=== PATIENT | male | born 1960 | race Caucasian/White ===

== ENCOUNTER 2024-04-24 21:25 | Inpatient (IN) | payer BC, OTHER ==
[~2024-04-24] VITALS: Ht 188 cm; Wt 96.0 kg
[2024-04-24 22:16] LABS: HEMATOCRIT 38.8 % (42.0-52.0); HEMOGLOBIN 12.1 g/dl (13.5-17.5); MEAN CORPUSCULAR HEMOGLOBIN 26.8 pg (27.0-33.0); MEAN CORPUSCULAR HGB CONC 31.2 g/dl (32.0-36.5); PLATELET COUNT, AUTOMATED 221 10^3/uL (150-450); RED BLOOD COUNT 4.51 10^6/uL (4.30-6.10); WHITE BLOOD COUNT 4.6 10^3/uL (4.0-10.0)
[2024-04-24] MEDS: ONDANSETRON 4MG 2ML VIAL IV ONE (22:18)
[2024-04-24 22:45] LABS: LIPASE 45 U/L (12-53)
[2024-04-24 22:47] LABS: ALBUMIN 2.3 G/DL (3.2-5.2); ALKALINE PHOSPHATASE 103 U/L (46-116); ALT/SGPT 30 U/L (7.0-40); AST/SGOT 42 U/L (<34); BILIRUBIN,DIRECT 0.3 MG/DL (<0.4); BILIRUBIN,TOTAL 0.7 MG/DL (0.3-1.2); BLOOD UREA NITROGEN 20 MG/DL (9-23); CALCIUM LEVEL 8.4 MG/DL (8.3-10.6); CARBON DIOXIDE LEVEL 29 MMOL/L (20-31); CHLORIDE LEVEL 99 MMOL/L (98-107); CREATININE FOR GFR 1.12 MG/DL (0.70-1.30); GLOMERULAR FILTRATION RATE > 60.0 (>49); GLUCOSE, FASTING 129 MG/DL (74-106); POTASSIUM SERUM 3.7 MMOL/L (3.5-5.1); SODIUM LEVEL 136 MMOL/L (136-145); TOTAL PROTEIN 6.4 G/DL (5.7-8.2)
[2024-04-24 23:04] LABS: CK-MB VALUE MASS < 1.0 NG/ML (<3.6)
[2024-04-24 23:06] LABS: CPK CREATINE PHOSPHOKINASE 111 U/L (46-171)
[2024-04-24 23:18] LABS: EOSINOPHILS 2 % (0-3); LYMPHOCYTES 4 % (16-44); MONOCYTES 11 % (0-5); NEUTROPHILS 73 % (28-66)
[2024-04-24 23:19] LABS: ANISOCYTOSIS 1+; HYPOCHROMASIA 1+; PLATELET ESTIMATE NORMAL (NORMAL)
[2024-04-24] MEDS: cefTRIAXone SOD 2 GM in D5W MINI-BAG PLUS 50 ML IV ONE (23:29)
[2024-04-24 23:41] LABS: CK-MB VALUE MASS < 1.0 NG/ML (<3.6); CPK CREATINE PHOSPHOKINASE 106 U/L (46-171); MB/CK RELATIVE INDEX 0.94 (< OR =4)
[2024-04-25] VITALS (8 sets, daily range): BP systolic 123–150; BP diastolic 63–75; TEMP 97.4–98.4; O2SAT 83–97
[2024-04-25] MEDS ORDERED: GLUCAGON INJ 1MG VIAL SC PRN (01:15)
[2024-04-25] MEDS ORDERED: DEXTROSE 50% 50ML SYRINGE IV PRN (01:15)
[2024-04-25] MEDS ORDERED: GLUCOSE 4 GM CHEW PO PRN (01:15)
[2024-04-25] MEDS ORDERED: ONDANSETRON 4MG 2ML VIAL IV PRN (02:00)
[2024-04-25] MEDS ORDERED: FERR1TAB8 PO (03:04)
[2024-04-25] MEDS ORDERED: MELA3TAB30 PO (03:04)
[2024-04-25] MEDS ORDERED: ASPI-655 PO (03:04)
[2024-04-25] MEDS ORDERED: ACET-907 PO (03:04)
[2024-04-25] MEDS ORDERED: PANT-23 PO (03:04)
[2024-04-25] MEDS ORDERED: JARD1TAB3 PO (03:04)
[2024-04-25] MEDS ORDERED: ASPE4PAD TOP (03:04)
[2024-04-25] MEDS ORDERED: SENN8.6T28 PO (03:04)
[2024-04-25] MEDS ORDERED: [UNRECOGNIZED DRUG - CODE] PO (03:04)
[2024-04-25] MEDS ORDERED: AMIO200T49 PO (03:04)
[2024-04-25] MEDS ORDERED: DICL100G10 TOP (03:04)
[2024-04-25] MEDS ORDERED: BOOSLIQ PO (03:04)
[2024-04-25] MEDS ORDERED: ROSU40TA81 PO (03:04)
[2024-04-25] MEDS ORDERED: JENT2.5T5 PO (03:04)
[2024-04-25] MEDS ORDERED: HOME MED LIST COMPLETE! XX SCH (03:05)
[2024-04-25 06:06] LABS: BASO % 0.6 % (0.0-1.0); EOS # 0.2 10^3/uL (0.0-0.5); EOS % 3.6 % (0.0-3.0); HEMATOCRIT 36.3 % (42.0-52.0); HEMOGLOBIN 11.3 g/dl (13.5-17.5); LYMPH # 0.5 10^3/uL (1.5-5.0); LYMPH % 10.1 % (24.0-44.0); MEAN CORPUSCULAR HEMOGLOBIN 27.4 pg (27.0-33.0); MEAN CORPUSCULAR HGB CONC 31.1 g/dl (32.0-36.5); MEAN CORPUSCULAR VOLUME 87.9 fl (80.0-96.0); MONO # 0.6 10^3/uL (0.0-0.8); MONO % 12.7 % (2.0-8.0); NEUTROPHILS # 3.4 10^3/uL (1.5-8.5); NEUTROPHILS % 72.4 % (36.0-66.0); PLATELET COUNT, AUTOMATED 238 10^3/uL (150-450); RED BLOOD COUNT 4.13 10^6/uL (4.30-6.10); WHITE BLOOD COUNT 4.7 10^3/uL (4.0-10.0)
[2024-04-25] MEDS: INSULIN LISPRO (NovoLOG) PER UNIT SC SCH ×2 (07:30→20:25)
[2024-04-25 08:16] LABS: ALBUMIN 2.2 G/DL (3.2-5.2); ALKALINE PHOSPHATASE 102 U/L (46-116); ALT/SGPT 35 U/L (7.0-40); AST/SGOT 43 U/L (<34); BILIRUBIN,TOTAL 0.5 MG/DL (0.3-1.2); BLOOD UREA NITROGEN 20 MG/DL (9-23); CALCIUM LEVEL 8.4 MG/DL (8.3-10.6); CARBON DIOXIDE LEVEL 30 MMOL/L (20-31); CHLORIDE LEVEL 98 MMOL/L (98-107); CREATININE FOR GFR 1.15 MG/DL (0.70-1.30); GLOMERULAR FILTRATION RATE > 60.0 (>49); GLUCOSE, FASTING 98 MG/DL (74-106); POTASSIUM SERUM 3.6 MMOL/L (3.5-5.1); SODIUM LEVEL 134 MMOL/L (136-145); TOTAL PROTEIN 6.2 G/DL (5.7-8.2)
[2024-04-25] MEDS: PANTOPRAZOLE 40MG TAB (PROTONIX) PO SCH (08:46)
[2024-04-25] MEDS: ASPIRIN 81MG CHEW TABLET PO SCH (08:46)
[2024-04-25] MEDS: HEPARIN SOD (PORCINE) 5000UNITS/ML 1ML VIAL/SYRINGE SC SCH (08:46)
[2024-04-25] MEDS: AMIODARONE 200 MG TAB (PACERONE) PO SCH (08:46)
[2024-04-25] MEDS: DOCUSATE SODIUM 100MG CAPSULE PO SCH (10:49)
[2024-04-25] MEDS: cefTRIAXone SOD 2 GM in D5W MINI-BAG PLUS 50 ML IV SCH (11:44)
[2024-04-25] MEDS: SENNA 8.6 MG TAB (SENOKOT) PO SCH (20:24)
[2024-04-25] MEDS: RAMELTEON 8 MG TAB (ROZEREM) PO SCH (20:24)
[2024-04-25] MEDS: ROSUVASTATIN 10 MG TAB (CRESTOR) PO SCH (20:25)
[2024-04-25] MEDS: LIDOCAINE 4% CREAM 5GM (LMX4) TOP SCH (20:27)
[2024-04-26 03:50] VITALS: BP 113/54; TEMP 97.8; O2SAT 97
[2024-04-26 05:43] LABS: HEMATOCRIT 34.2 % (42.0-52.0); HEMOGLOBIN 10.5 g/dl (13.5-17.5); MEAN CORPUSCULAR HEMOGLOBIN 26.6 pg (27.0-33.0); MEAN CORPUSCULAR HGB CONC 30.7 g/dl (32.0-36.5); MEAN CORPUSCULAR VOLUME 86.6 fl (80.0-96.0); PLATELET COUNT, AUTOMATED 228 10^3/uL (150-450); RED BLOOD COUNT 3.95 10^6/uL (4.30-6.10); WHITE BLOOD COUNT 5.8 10^3/uL (4.0-10.0)
[2024-04-26 06:11] LABS: ALKALINE PHOSPHATASE 102 U/L (46-116); ALT/SGPT 41 U/L (7.0-40); AST/SGOT 65 U/L (<34); BILIRUBIN,TOTAL 0.4 MG/DL (0.3-1.2); BLOOD UREA NITROGEN 16 MG/DL (9-23); CALCIUM LEVEL 8.1 MG/DL (8.3-10.6); CARBON DIOXIDE LEVEL 31 MMOL/L (20-31); CHLORIDE LEVEL 99 MMOL/L (98-107); CREATININE FOR GFR 0.88 MG/DL (0.70-1.30); GLOMERULAR FILTRATION RATE > 60.0 (>49); GLUCOSE, FASTING 143 MG/DL (74-106); POTASSIUM SERUM 2.8 MMOL/L (3.5-5.1); SODIUM LEVEL 135 MMOL/L (136-145); TOTAL PROTEIN 5.9 G/DL (5.7-8.2)
[2024-04-26] MEDS: DAPAGLIFLOZIN PROPANEDIOL 10MG TABLET (FARXIGA) PO SCH (09:15)
[2024-04-26] MEDS: POTASSIUM CHLORIDE 10MEQ SR TABLET PO ONE (09:15)
[2024-04-26] MEDS: cefTRIAXone SOD 1 GM in D5W MINI-BAG PLUS 50 ML IV SCH (09:58)
[2024-04-26] MEDS: POTASSIUM CHLORIDE 10MEQ SR TABLET PO SCH (09:58)
[2024-04-26 12:00] VITALS: BP 119/70; TEMP 97.2; O2SAT 97
[2024-04-26 19:55] VITALS: BP 104/54; TEMP 97.5; O2SAT 97
[2024-04-26] MEDS: CEFDINIR 300 MG CAP (OMNICEF) PO SCH (20:20)
[2024-04-27 03:55] VITALS: BP 102/52; TEMP 97.3; O2SAT 94
[2024-04-27 05:54] LABS: HEMATOCRIT 35.2 % (42.0-52.0); HEMOGLOBIN 10.7 g/dl (13.5-17.5); MEAN CORPUSCULAR HEMOGLOBIN 26.4 pg (27.0-33.0); MEAN CORPUSCULAR HGB CONC 30.4 g/dl (32.0-36.5); MEAN CORPUSCULAR VOLUME 86.7 fl (80.0-96.0); PLATELET COUNT, AUTOMATED 216 10^3/uL (150-450); RED BLOOD COUNT 4.06 10^6/uL (4.30-6.10); WHITE BLOOD COUNT 4.9 10^3/uL (4.0-10.0)
[2024-04-27 06:30] LABS: ALBUMIN 1.9 G/DL (3.2-5.2); ALKALINE PHOSPHATASE 104 U/L (46-116); ALT/SGPT 49 U/L (7.0-40); AST/SGOT 74 U/L (<34); BILIRUBIN,TOTAL 0.3 MG/DL (0.3-1.2); BLOOD UREA NITROGEN 14 MG/DL (9-23); CALCIUM LEVEL 8.2 MG/DL (8.3-10.6); CARBON DIOXIDE LEVEL 34 MMOL/L (20-31); CHLORIDE LEVEL 100 MMOL/L (98-107); CREATININE FOR GFR 0.94 MG/DL (0.70-1.30); GLOMERULAR FILTRATION RATE > 60.0 (>49); GLUCOSE, FASTING 121 MG/DL (74-106); POTASSIUM SERUM 3.5 MMOL/L (3.5-5.1); SODIUM LEVEL 138 MMOL/L (136-145); TOTAL PROTEIN 5.8 G/DL (5.7-8.2)
[2024-04-27 12:00] VITALS: BP 109/63; TEMP 97.5; O2SAT 96
[2024-04-27 20:43] VITALS: BP 115/74; TEMP 97.7; O2SAT 93
[2024-04-28 04:00] VITALS: BP 124/72; TEMP 97.2; O2SAT 96
[2024-04-28 05:50] LABS: HEMATOCRIT 36.3 % (42.0-52.0); HEMOGLOBIN 11.1 g/dl (13.5-17.5); MEAN CORPUSCULAR HEMOGLOBIN 26.5 pg (27.0-33.0); MEAN CORPUSCULAR HGB CONC 30.6 g/dl (32.0-36.5); MEAN CORPUSCULAR VOLUME 86.6 fl (80.0-96.0); PLATELET COUNT, AUTOMATED 210 10^3/uL (150-450); RED BLOOD COUNT 4.19 10^6/uL (4.30-6.10); WHITE BLOOD COUNT 4.3 10^3/uL (4.0-10.0)
[2024-04-28 06:16] LABS: ALBUMIN 1.9 G/DL (3.2-5.2); ALKALINE PHOSPHATASE 101 U/L (46-116); ALT/SGPT 49 U/L (7.0-40); AST/SGOT 58 U/L (<34); BILIRUBIN,TOTAL 0.3 MG/DL (0.3-1.2); BLOOD UREA NITROGEN 14 MG/DL (9-23); CALCIUM LEVEL 8.1 MG/DL (8.3-10.6); CARBON DIOXIDE LEVEL 31 MMOL/L (20-31); CHLORIDE LEVEL 103 MMOL/L (98-107); GLOMERULAR FILTRATION RATE > 60.0 (>49); GLUCOSE, FASTING 120 MG/DL (74-106); POTASSIUM SERUM 3.4 MMOL/L (3.5-5.1); SODIUM LEVEL 139 MMOL/L (136-145); TOTAL PROTEIN 5.9 G/DL (5.7-8.2)
[2024-04-28] MEDS: ACETAMINOPHEN TAB 650MG DOSE (2X325MG) PO PRN (07:33)
[2024-04-28] MEDS: POTASSIUM CHLORIDE 10MEQ SR TABLET PO SCH (08:39)
[2024-04-28 12:45] VITALS: BP 109/66; TEMP 97.2; O2SAT 94
[2024-04-28] MEDS: FUROSEMIDE 40MG/4ML VIAL IV SCH (17:52)
[2024-04-28 20:00] VITALS: BP 131/80; TEMP 97; O2SAT 94
[2024-04-28] MEDS: CEFDINIR 300 MG CAP (OMNICEF) PO SCH (20:41)
[2024-04-29 04:00] VITALS: BP 99/64; TEMP 97; O2SAT 93
[2024-04-29] MEDS: NORCO, ANEXSIA 5/325MG TABLET (HYDROcodone/ACETAMINOPHEN) PO ONE (04:23)
[2024-04-29] MEDS: LIDOCAINE 5% (LIDODERM) PATCH TD ONE (04:23)
[2024-04-29 05:58] LABS: HEMATOCRIT 36.9 % (42.0-52.0); HEMOGLOBIN 11.1 g/dl (13.5-17.5); MEAN CORPUSCULAR HEMOGLOBIN 26.2 pg (27.0-33.0); MEAN CORPUSCULAR HGB CONC 30.1 g/dl (32.0-36.5); MEAN CORPUSCULAR VOLUME 87.2 fl (80.0-96.0); PLATELET COUNT, AUTOMATED 224 10^3/uL (150-450); RED BLOOD COUNT 4.23 10^6/uL (4.30-6.10); WHITE BLOOD COUNT 3.8 10^3/uL (4.0-10.0)
[2024-04-29 06:20] LABS: ALKALINE PHOSPHATASE 97 U/L (46-116); ALT/SGPT 46 U/L (7.0-40); AST/SGOT 42 U/L (<34); BILIRUBIN,TOTAL 0.2 MG/DL (0.3-1.2); BLOOD UREA NITROGEN 14 MG/DL (9-23); CALCIUM LEVEL 8.3 MG/DL (8.3-10.6); CARBON DIOXIDE LEVEL 28 MMOL/L (20-31); CHLORIDE LEVEL 106 MMOL/L (98-107); CREATININE FOR GFR 0.65 MG/DL (0.70-1.30); GLOMERULAR FILTRATION RATE > 60.0 (>49); GLUCOSE, FASTING 142 MG/DL (74-106); POTASSIUM SERUM 3.7 MMOL/L (3.5-5.1); SODIUM LEVEL 140 MMOL/L (136-145); TOTAL PROTEIN 6.1 G/DL (5.7-8.2)
[2024-04-29] MEDS: FUROSEMIDE 40MG/4ML VIAL IV SCH (09:00)
[2024-04-29] MEDS ORDERED: PILL CUTTER 1 EACH XX ONE (09:40)
[2024-04-29] MEDS ORDERED: PILL CUTTER 1 EACH XX PRN (09:40)
[2024-04-29 12:00] VITALS: BP 152/82; TEMP 96.8; O2SAT 97
[2024-04-29 20:00] VITALS: BP 105/65; TEMP 96.8; O2SAT 96
[2024-04-30 04:00] VITALS: BP 100/58; TEMP 97; O2SAT 92
[2024-04-30 05:50] LABS: HEMATOCRIT 38.9 % (42.0-52.0); MEAN CORPUSCULAR HEMOGLOBIN 26.5 pg (27.0-33.0); MEAN CORPUSCULAR HGB CONC 30.8 g/dl (32.0-36.5); MEAN CORPUSCULAR VOLUME 85.9 fl (80.0-96.0); PLATELET COUNT, AUTOMATED 237 10^3/uL (150-450); RED BLOOD COUNT 4.53 10^6/uL (4.30-6.10); WHITE BLOOD COUNT 4.3 10^3/uL (4.0-10.0)
[2024-04-30 06:19] LABS: ALBUMIN 2.1 G/DL (3.2-5.2); ALKALINE PHOSPHATASE 95 U/L (46-116); ALT/SGPT 40 U/L (7.0-40); AST/SGOT 32 U/L (<34); BILIRUBIN,TOTAL 0.3 MG/DL (0.3-1.2); BLOOD UREA NITROGEN 16 MG/DL (9-23); CALCIUM LEVEL 8.3 MG/DL (8.3-10.6); CARBON DIOXIDE LEVEL 30 MMOL/L (20-31); CHLORIDE LEVEL 103 MMOL/L (98-107); CREATININE FOR GFR 0.66 MG/DL (0.70-1.30); GLOMERULAR FILTRATION RATE > 60.0 (>49); GLUCOSE, FASTING 135 MG/DL (74-106); POTASSIUM SERUM 3.5 MMOL/L (3.5-5.1); SODIUM LEVEL 140 MMOL/L (136-145); TOTAL PROTEIN 6.2 G/DL (5.7-8.2)
[2024-04-30 11:25] LABS: LDH LACTATE DEHYDROGENASE 156 U/L (120-246)
[2024-04-30 12:12] VITALS: BP 99/57; TEMP 97; O2SAT 94
[2024-04-30 16:53] VITALS: BP 104/67; TEMP 96.5; O2SAT 93
[2024-04-30 17:25] VITALS: BP 109/68; TEMP 96.8; O2SAT 94
[2024-04-30 17:48] LABS: SOURCE, BODY FLUID pH PLEURAL
[2024-04-30 18:08] LABS: APPEARANCE, BODY FLUID TURBID (CLEAR); PLEURAL FL COLOR ORANGE (COLORLESS); SOURCE, BODY FLUID PLEURAL
[2024-04-30 18:12] VITALS: BP 107/67; TEMP 97; O2SAT 96
[2024-04-30 18:45] LABS: SOURCE, BODY FLUID GLUCOSE PLEURAL
[2024-04-30 18:46] LABS: LDH, BODY FLUID 430 U/L (NOT ESTABLISHED); SOURCE, BODY FLUID LDH PLEURAL
[2024-04-30 18:47] LABS: AMYLASE, BODY FLUID 46 U/L (NOT ESTABLISHED); SOURCE, BODY FLUID AMYLASE PLEURAL
[2024-04-30 19:13] LABS: SOURCE, BODY FLUID TOT PROTEIN PLEURAL; TOTAL PROTEIN, BODY FLUID 4.6 G/DL (NOT ESTABLISHED)
[2024-04-30 20:07] VITALS: BP 101/65; TEMP 96.8; O2SAT 93
[2024-05-01] MEDS: LIDOCAINE 5% (LIDODERM) PATCH TD PRN (03:15)
[2024-05-01 04:00] VITALS: BP 102/65; TEMP 97.2; O2SAT 91
[2024-05-01 05:51] LABS: BASO % 0.5 % (0.0-1.0); EOS # 0.3 10^3/uL (0.0-0.5); EOS % 4.7 % (0.0-3.0); HEMATOCRIT 38.3 % (42.0-52.0); HEMOGLOBIN 11.6 g/dl (13.5-17.5); LYMPH # 1.1 10^3/uL (1.5-5.0); MEAN CORPUSCULAR HEMOGLOBIN 26.4 pg (27.0-33.0); MEAN CORPUSCULAR HGB CONC 30.3 g/dl (32.0-36.5); MONO # 0.6 10^3/uL (0.0-0.8); MONO % 10.3 % (2.0-8.0); NEUTROPHILS # 3.9 10^3/uL (1.5-8.5); NEUTROPHILS % 64.2 % (36.0-66.0); PLATELET COUNT, AUTOMATED 235 10^3/uL (150-450)
[2024-05-01 06:20] LABS: BLOOD UREA NITROGEN 16 MG/DL (9-23); CALCIUM LEVEL 8.5 MG/DL (8.3-10.6); CARBON DIOXIDE LEVEL 32 MMOL/L (20-31); CHLORIDE LEVEL 101 MMOL/L (98-107); CREATININE FOR GFR 0.86 MG/DL (0.70-1.30); GLOMERULAR FILTRATION RATE > 60.0 (>49); GLUCOSE, FASTING 134 MG/DL (74-106); MAGNESIUM LEVEL 1.6 MG/DL (1.8-2.4); POTASSIUM SERUM 3.8 MMOL/L (3.5-5.1); SODIUM LEVEL 139 MMOL/L (136-145)
[2024-05-01] MEDS: MAG SULF 1GM/100ML (MAG RUN) 1 GM in IV 1 EA IV SCH (09:00)
[2024-05-01 12:00] VITALS: BP 104/65; TEMP 97.5; O2SAT 95
[2024-05-01] MEDS: PERCOCET 5MG/325MG TAB PO PRN (14:05)
[2024-05-01 19:37] VITALS: BP 110/60; TEMP 97.7; O2SAT 97
[2024-05-01] MEDS: PREGABALIN 25 MG CAP (LYRICA) PO SCH (21:11)
[2024-05-02] VITALS (8 sets, daily range): BP systolic 70–120; BP diastolic 40–70; TEMP 97–97.3; O2SAT 92–96
[2024-05-02 06:00] LABS: BASO % 0.6 % (0.0-1.0); EOS # 0.4 10^3/uL (0.0-0.5); EOS % 7.3 % (0.0-3.0); HEMATOCRIT 37.1 % (42.0-52.0); HEMOGLOBIN 11.3 g/dl (13.5-17.5); LYMPH # 1.1 10^3/uL (1.5-5.0); LYMPH % 21.3 % (24.0-44.0); MEAN CORPUSCULAR HEMOGLOBIN 26.6 pg (27.0-33.0); MEAN CORPUSCULAR HGB CONC 30.5 g/dl (32.0-36.5); MEAN CORPUSCULAR VOLUME 87.3 fl (80.0-96.0); MONO # 0.5 10^3/uL (0.0-0.8); NEUTROPHILS # 2.8 10^3/uL (1.5-8.5); PLATELET COUNT, AUTOMATED 208 10^3/uL (150-450); RED BLOOD COUNT 4.25 10^6/uL (4.30-6.10); WHITE BLOOD COUNT 4.9 10^3/uL (4.0-10.0)
[2024-05-02 06:23] LABS: BLOOD UREA NITROGEN 15 MG/DL (9-23); CALCIUM LEVEL 8.4 MG/DL (8.3-10.6); CARBON DIOXIDE LEVEL 32 MMOL/L (20-31); CHLORIDE LEVEL 104 MMOL/L (98-107); CREATININE FOR GFR 0.78 MG/DL (0.70-1.30); GLOMERULAR FILTRATION RATE > 60.0 (>49); GLUCOSE, FASTING 126 MG/DL (74-106); POTASSIUM SERUM 3.8 MMOL/L (3.5-5.1); SODIUM LEVEL 139 MMOL/L (136-145)
[2024-05-02 07:53] LABS: MAGNESIUM LEVEL 1.9 MG/DL (1.8-2.4)
[2024-05-02] MEDS: NS 1,000 ML IV ONE (09:41)
[2024-05-03 04:20] VITALS: BP 82/46; TEMP 97.3; O2SAT 94
[2024-05-03] MEDS: NS 500 ML IV ONE (04:32)
[2024-05-03 09:20] VITALS: BP 102/60
[2024-05-03] MEDS: MIDODRINE 5 MG TAB PO SCH (12:10)
[2024-05-03 12:44] VITALS: BP 120/70; TEMP 96.8; O2SAT 96
[2024-05-03 19:59] VITALS: BP 92/52; TEMP 97; O2SAT 97
[2024-05-04 00:12] VITALS: BP 112/56; TEMP 97.2; O2SAT 95
[2024-05-04 03:46] VITALS: BP 98/58; TEMP 96.8; O2SAT 95
[2024-05-04 07:22] LABS: BASO % 0.6 % (0.0-1.0); EOS # 0.3 10^3/uL (0.0-0.5); EOS % 7.8 % (0.0-3.0); HEMATOCRIT 36.8 % (42.0-52.0); HEMOGLOBIN 11.1 g/dl (13.5-17.5); LYMPH # 0.9 10^3/uL (1.5-5.0); LYMPH % 26.2 % (24.0-44.0); MEAN CORPUSCULAR HEMOGLOBIN 26.5 pg (27.0-33.0); MEAN CORPUSCULAR HGB CONC 30.2 g/dl (32.0-36.5); MEAN CORPUSCULAR VOLUME 87.8 fl (80.0-96.0); MONO # 0.5 10^3/uL (0.0-0.8); MONO % 13.1 % (2.0-8.0); NEUTROPHILS # 1.8 10^3/uL (1.5-8.5); NEUTROPHILS % 50.4 % (36.0-66.0); PLATELET COUNT, AUTOMATED 227 10^3/uL (150-450); RED BLOOD COUNT 4.19 10^6/uL (4.30-6.10); WHITE BLOOD COUNT 3.6 10^3/uL (4.0-10.0)
[2024-05-04 07:44] LABS: BLOOD UREA NITROGEN 12 MG/DL (9-23); CALCIUM LEVEL 8.6 MG/DL (8.3-10.6); CARBON DIOXIDE LEVEL 28 MMOL/L (20-31); CHLORIDE LEVEL 108 MMOL/L (98-107); CREATININE FOR GFR 0.69 MG/DL (0.70-1.30); GLOMERULAR FILTRATION RATE > 60.0 (>49); GLUCOSE, FASTING 110 MG/DL (74-106); POTASSIUM SERUM 3.8 MMOL/L (3.5-5.1); SODIUM LEVEL 141 MMOL/L (136-145)
[2024-05-04 12:30] VITALS: BP 132/78; TEMP 97; O2SAT 97
[2024-05-04 19:38] VITALS: BP 112/60; TEMP 97; O2SAT 96
[2024-05-04 20:00] VITALS: BP 100/56; TEMP 97; O2SAT 94
[2024-05-05 04:48] VITALS: BP 102/58; TEMP 97.2; O2SAT 95
[2024-05-05 12:17] VITALS: BP 134/68; TEMP 97; O2SAT 96
[2024-05-05 20:00] VITALS: BP 100/56; TEMP 96.8; O2SAT 97
[2024-05-06 04:00] VITALS: BP 129/62; TEMP 97.3; O2SAT 93
[2024-05-07 04:10] VITALS: BP 101/51; TEMP 97.3; O2SAT 92
[2024-05-07] MEDS: guaiFENesin ER TABLET 600 MG TAB PO SCH (21:29)
[2024-05-08 04:00] VITALS: BP 99/53; TEMP 97.3; O2SAT 93
[2024-05-08 06:01] LABS: HEMATOCRIT 33.4 % (42.0-52.0); HEMOGLOBIN 10.2 g/dl (13.5-17.5); MEAN CORPUSCULAR HEMOGLOBIN 26.8 pg (27.0-33.0); MEAN CORPUSCULAR HGB CONC 30.5 g/dl (32.0-36.5); MEAN CORPUSCULAR VOLUME 87.7 fl (80.0-96.0); PLATELET COUNT, AUTOMATED 230 10^3/uL (150-450); RED BLOOD COUNT 3.81 10^6/uL (4.30-6.10); WHITE BLOOD COUNT 7.9 10^3/uL (4.0-10.0)
[2024-05-08 06:24] LABS: ALBUMIN 2.1 G/DL (3.2-5.2); ALKALINE PHOSPHATASE 67 U/L (46-116); ALT/SGPT 20 U/L (7.0-40); AST/SGOT 21 U/L (<34); BILIRUBIN,TOTAL 0.6 MG/DL (0.3-1.2); BLOOD UREA NITROGEN 13 MG/DL (9-23); CALCIUM LEVEL 8.7 MG/DL (8.3-10.6); CARBON DIOXIDE LEVEL 28 MMOL/L (20-31); CHLORIDE LEVEL 105 MMOL/L (98-107); GLOMERULAR FILTRATION RATE > 60.0 (>49); GLUCOSE, FASTING 120 MG/DL (74-106); POTASSIUM SERUM 4.1 MMOL/L (3.5-5.1); SODIUM LEVEL 139 MMOL/L (136-145); TOTAL PROTEIN 5.7 G/DL (5.7-8.2)
[2024-05-08 08:16] VITALS: BP 97/53
[2024-05-08 12:40] VITALS: BP 108/54
[2024-05-09 05:08] VITALS: BP 110/60; TEMP 97.2; O2SAT 96
[2024-05-09 12:05] VITALS: BP 89/50
[2024-05-09 12:06] VITALS: BP 156/90
[2024-05-09 20:29] VITALS: BP 131/65; TEMP 97.5; O2SAT 96
[2024-05-10 03:48] VITALS: BP 118/48; TEMP 97.7; O2SAT 97
[2024-05-10 08:30] VITALS: BP 110/58; O2SAT 97
[2024-05-10 12:14] VITALS: BP 100/54; TEMP 97.5; O2SAT 96
[2024-05-10] MEDS: CYCLOBENZAPRINE 5MG TABLET PO PRN (14:14)
[2024-05-10 17:17] VITALS: BP 152/72
[2024-05-10] MEDS: MIDODRINE 2.5 MG TAB PO SCH (17:18)
[2024-05-11 03:50] VITALS: BP 92/52; TEMP 97; O2SAT 94
[2024-05-11 05:42] LABS: HEMATOCRIT 33.2 % (42.0-52.0); HEMOGLOBIN 10.3 g/dl (13.5-17.5); MEAN CORPUSCULAR HEMOGLOBIN 27.3 pg (27.0-33.0); MEAN CORPUSCULAR VOLUME 88.1 fl (80.0-96.0); PLATELET COUNT, AUTOMATED 225 10^3/uL (150-450); RED BLOOD COUNT 3.77 10^6/uL (4.30-6.10); WHITE BLOOD COUNT 3.2 10^3/uL (4.0-10.0)
[2024-05-11 06:31] LABS: ALBUMIN 2.2 G/DL (3.2-5.2); ALKALINE PHOSPHATASE 62 U/L (46-116); ALT/SGPT 22 U/L (7.0-40); AST/SGOT 16 U/L (<34); BILIRUBIN,TOTAL 0.3 MG/DL (0.3-1.2); BLOOD UREA NITROGEN 14 MG/DL (9-23); CALCIUM LEVEL 8.8 MG/DL (8.3-10.6); CARBON DIOXIDE LEVEL 29 MMOL/L (20-31); CHLORIDE LEVEL 109 MMOL/L (98-107); CREATININE FOR GFR 0.65 MG/DL (0.70-1.30); GLOMERULAR FILTRATION RATE > 60.0 (>49); GLUCOSE, FASTING 133 MG/DL (74-106); POTASSIUM SERUM 3.9 MMOL/L (3.5-5.1); SODIUM LEVEL 142 MMOL/L (136-145); TOTAL PROTEIN 5.9 G/DL (5.7-8.2)
[2024-05-11] MEDS: MOM 30ML SUSPENSION UDC PO SCH (09:00)
[2024-05-11 09:03] VITALS: BP 109/57
[2024-05-11] MEDS: SANTYL OINT 30GM TOP SCH (11:22)
[2024-05-11 12:45] VITALS: BP 114/59
[2024-05-11 16:54] VITALS: BP 117/60
[2024-05-11] MEDS ORDERED: MIRALAX *UNIT DOSE* 17GM PACKET PO PRN (18:40)
[2024-05-11] MEDS: DOCUSATE SODIUM 100MG CAPSULE PO SCH (20:22)
[2024-05-12 04:00] VITALS: BP 116/61; TEMP 97.5; O2SAT 94
[2024-05-12 06:06] LABS: HEMATOCRIT 34.6 % (42.0-52.0); HEMOGLOBIN 10.5 g/dl (13.5-17.5); MEAN CORPUSCULAR HEMOGLOBIN 26.7 pg (27.0-33.0); MEAN CORPUSCULAR HGB CONC 30.3 g/dl (32.0-36.5); PLATELET COUNT, AUTOMATED 223 10^3/uL (150-450); RED BLOOD COUNT 3.93 10^6/uL (4.30-6.10); WHITE BLOOD COUNT 3.4 10^3/uL (4.0-10.0)
[2024-05-12 06:34] LABS: ALBUMIN 2.3 G/DL (3.2-5.2); ALKALINE PHOSPHATASE 63 U/L (46-116); ALT/SGPT 23 U/L (7.0-40); AST/SGOT 17 U/L (<34); BILIRUBIN,TOTAL 0.3 MG/DL (0.3-1.2); BLOOD UREA NITROGEN 12 MG/DL (9-23); CALCIUM LEVEL 8.5 MG/DL (8.3-10.6); CARBON DIOXIDE LEVEL 30 MMOL/L (20-31); CHLORIDE LEVEL 105 MMOL/L (98-107); CREATININE FOR GFR 0.64 MG/DL (0.70-1.30); GLOMERULAR FILTRATION RATE > 60.0 (>49); GLUCOSE, FASTING 127 MG/DL (74-106); POTASSIUM SERUM 4.2 MMOL/L (3.5-5.1); SODIUM LEVEL 138 MMOL/L (136-145); TOTAL PROTEIN 5.9 G/DL (5.7-8.2)
[2024-05-12 09:23] VITALS: BP 92/50
[2024-05-12 22:07] VITALS: BP 122/61; TEMP 97.3; O2SAT 94
[2024-05-13 03:32] VITALS: BP 108/64; TEMP 97.5; O2SAT 96
[2024-05-13 05:09] LABS: HEMATOCRIT 36.7 % (42.0-52.0); HEMOGLOBIN 10.9 g/dl (13.5-17.5); MEAN CORPUSCULAR HEMOGLOBIN 26.3 pg (27.0-33.0); MEAN CORPUSCULAR HGB CONC 29.7 g/dl (32.0-36.5); MEAN CORPUSCULAR VOLUME 88.6 fl (80.0-96.0); PLATELET COUNT, AUTOMATED 208 10^3/uL (150-450); RED BLOOD COUNT 4.14 10^6/uL (4.30-6.10); WHITE BLOOD COUNT 3.5 10^3/uL (4.0-10.0)
[2024-05-13 05:45] LABS: ALBUMIN 2.4 G/DL (3.2-5.2); ALKALINE PHOSPHATASE 65 U/L (46-116); ALT/SGPT 18 U/L (7.0-40); AST/SGOT 11 U/L (<34); BILIRUBIN,TOTAL 0.4 MG/DL (0.3-1.2); BLOOD UREA NITROGEN 10 MG/DL (9-23); CARBON DIOXIDE LEVEL 29 MMOL/L (20-31); CHLORIDE LEVEL 105 MMOL/L (98-107); CREATININE FOR GFR 0.65 MG/DL (0.70-1.30); GLOMERULAR FILTRATION RATE > 60.0 (>49); GLUCOSE, FASTING 154 MG/DL (74-106); POTASSIUM SERUM 4.1 MMOL/L (3.5-5.1); SODIUM LEVEL 139 MMOL/L (136-145); TOTAL PROTEIN 6.2 G/DL (5.7-8.2)
[2024-05-13 12:00] VITALS: BP 143/72; TEMP 97; O2SAT 94
[2024-05-14 04:00] VITALS: BP 112/60; TEMP 97.3; O2SAT 94
[2024-05-14 06:25] LABS: HEMATOCRIT 35.1 % (42.0-52.0); HEMOGLOBIN 10.8 g/dl (13.5-17.5); MEAN CORPUSCULAR HEMOGLOBIN 26.8 pg (27.0-33.0); MEAN CORPUSCULAR HGB CONC 30.8 g/dl (32.0-36.5); MEAN CORPUSCULAR VOLUME 87.1 fl (80.0-96.0); PLATELET COUNT, AUTOMATED 206 10^3/uL (150-450); RED BLOOD COUNT 4.03 10^6/uL (4.30-6.10); WHITE BLOOD COUNT 4.1 10^3/uL (4.0-10.0)
[2024-05-14 07:15] LABS: ALBUMIN 2.4 G/DL (3.2-5.2); ALKALINE PHOSPHATASE 66 U/L (46-116); ALT/SGPT 16 U/L (7.0-40); AST/SGOT 11 U/L (<34); BILIRUBIN,TOTAL 0.3 MG/DL (0.3-1.2); BLOOD UREA NITROGEN 13 MG/DL (9-23); CALCIUM LEVEL 8.7 MG/DL (8.3-10.6); CARBON DIOXIDE LEVEL 29 MMOL/L (20-31); CHLORIDE LEVEL 103 MMOL/L (98-107); GLOMERULAR FILTRATION RATE > 60.0 (>49); GLUCOSE, FASTING 133 MG/DL (74-106); POTASSIUM SERUM 4.1 MMOL/L (3.5-5.1); SODIUM LEVEL 137 MMOL/L (136-145)
[2024-05-14 09:04] VITALS: BP 97/55
[2024-05-15 03:52] VITALS: BP 97/57; TEMP 97.3; O2SAT 94
[2024-05-15] MEDS ORDERED: FARX1TAB3 PO (08:51)
[2024-05-15] MEDS ORDERED: MIDO2.5T PO (08:51)
[2024-05-15] MEDS ORDERED: MUCI600T31 PO (08:51)
[2024-05-15] MEDS ORDERED: CYCL5TAB PO (08:51)
[2024-05-15] MEDS ORDERED: SANT250O8 TOP (08:51)
[2024-05-15] MEDS ORDERED: PERCOCET PO (08:51)
[2024-05-15] MEDS ORDERED: SENN1TAB85 PO (08:51)
[2024-05-15] MEDS ORDERED: MOM30SS2 PO (08:51)
[2024-05-15] MEDS ORDERED: PREG25CA PO (08:51)
== END 2024-05-15 11:26 | DRG 466 ==
LOC: M ED 21:25 → M ED INP 04-25 00:58 → M MSPAV 04-25 02:09
PROVIDERS: ADMIT Student in an Organized Health Care Education/Training Program; ATTEND Internal Medicine Nephrology
PROC: 0W993ZZ Drainage of Right Pleural Cavity, Percutaneous Approach (ICD-10-PCS; principal; 2024-04-30 15:30)
DX: T83.518A Infection and inflammatory reaction due to other urinary catheter, initial encounter (principal); J96.01 Acute respiratory failure with hypoxia; I47.0 Re-entry ventricular arrhythmia; J18.9 Pneumonia, unspecified organism; J90 Pleural effusion, not elsewhere classified; G95.11 Acute infarction of spinal cord (embolic) (nonembolic); L89.154 Pressure ulcer of sacral region, stage 4; I11.0 Hypertensive heart disease with heart failure; I50.22 Chronic systolic (congestive) heart failure; G82.20 Paraplegia, unspecified; E11.42 Type 2 diabetes mellitus with diabetic polyneuropathy; N31.9 Neuromuscular dysfunction of bladder, unspecified; G90.4 Autonomic dysreflexia; R33.9 Retention of urine, unspecified; F41.9 Anxiety disorder, unspecified; K21.9 Gastro-esophageal reflux disease without esophagitis; G47.00 Insomnia, unspecified; G47.33 Obstructive sleep apnea (adult) (pediatric); I25.10 Atherosclerotic heart disease of native coronary artery without angina pectoris; E78.5 Hyperlipidemia, unspecified; D50.9 Iron deficiency anemia, unspecified; I25.2 Old myocardial infarction; E87.6 Hypokalemia; B96.1 Klebsiella pneumoniae [K. pneumoniae] as the cause of diseases classified elsewhere; B95.5 Unspecified streptococcus as the cause of diseases classified elsewhere; K59.00 Constipation, unspecified; I95.1 Orthostatic hypotension; Y84.6 Urinary catheterization as the cause of abnormal reaction of the patient, or of later complication, without mention of misadventure at the time of the procedure; M62.830 Muscle spasm of back; G89.29 Other chronic pain; Z87.891 Personal history of nicotine dependence; Z86.74 Personal history of sudden cardiac arrest

== ENCOUNTER → 2024-08-13 | Outpatient (REF) ==
[~2024-08-13] MED LIST: ACET-907 PO; AMIO200T49 PO; ASPE4PAD TOP; ASPI-655 PO; BOOSLIQ PO; CYCL5TAB4 PO; DICL100G10 TOP; FARX1TAB3 PO; FERR1TAB8 PO; JARD1TAB3 PO; JENT2.5T5 PO; MELA3TAB30 PO; MIDO2.5T3 PO; MOM30SS2 PO; MUCI600T31 PO; PANT-23 PO; PERCOCET PO; PREG25CA PO; ROSU40TA81 PO; SANT250O8 TOP; SENN1TAB85 PO; SENN8.6T28 PO; [UNRECOGNIZED DRUG - CODE] PO
== END ==
LOC: M SLEEP HO 07-24 10:00
PROVIDERS: ATTEND Student in an Organized Health Care Education/Training Program
DX: G47.33 Obstructive sleep apnea (adult) (pediatric) (principal)